=== PATIENT | male | born 1985 | race Two or more races ===

== ENCOUNTER → 2020-03-13 09:08 | Outpatient (BNVA) | payer OTHER, SELFPAY | PROVIDERS: Visit Provider Physician Assistant | DX: S05.01XA Injury of conjunctiva and corneal abrasion without foreign body, right eye, initial encounter (principal); X58.XXXA Exposure to other specified factors, initial encounter | CPT/HCPCS: 99214 ==

== ENCOUNTER → 2020-03-16 09:23 | Outpatient (BNVA) | payer OTHER, SELFPAY | PROVIDERS: Visit Provider Internal Medicine | DX: S05.91XA Unspecified injury of right eye and orbit, initial encounter (principal) | CPT/HCPCS: 99213 ==

== ENCOUNTER → 2021-12-13 13:16 | Outpatient (BNVA) | payer OTHER, SELFPAY | PROVIDERS: Visit Provider Internal Medicine | DX: S30.0XXA Contusion of lower back and pelvis, initial encounter (principal); W18.09XA Striking against other object with subsequent fall, initial encounter | CPT/HCPCS: 99203 ==

== ENCOUNTER → 2021-12-17 13:29 | Outpatient (BNVA) | payer OTHER, SELFPAY | PROVIDERS: Visit Provider Physician Assistant Medical | DX: S30.0XXD Contusion of lower back and pelvis, subsequent encounter (principal); W18.09XD Striking against other object with subsequent fall, subsequent encounter | CPT/HCPCS: 99213 ==

== ENCOUNTER → 2021-12-27 13:21 | Outpatient (BNVA) | payer OTHER, SELFPAY | PROVIDERS: Visit Provider Physician Assistant Medical | DX: S30.0XXD Contusion of lower back and pelvis, subsequent encounter (principal); W18.09XD Striking against other object with subsequent fall, subsequent encounter | CPT/HCPCS: 99213 ==

== ENCOUNTER → 2022-02-14 13:05 | Outpatient (BNVA) | payer OTHER, SELFPAY | PROVIDERS: Visit Provider Physician Assistant Medical | DX: S30.0XXD Contusion of lower back and pelvis, subsequent encounter (principal); W18.09XD Striking against other object with subsequent fall, subsequent encounter | CPT/HCPCS: 99213 ==

== ENCOUNTER → 2022-08-05 10:02 | Outpatient (BNVA) | payer OTHER, SELFPAY | PROVIDERS: Visit Provider Internal Medicine | DX: S67.21XA Crushing injury of right hand, initial encounter (principal); W23.1XXA Caught, crushed, jammed, or pinched between stationary objects, initial encounter | CPT/HCPCS: 73110; 73130; 99203 ==

== ENCOUNTER → 2022-08-12 11:47 | Outpatient (BNVA) | payer OTHER, SELFPAY | PROVIDERS: Visit Provider Physician Assistant Medical | DX: S67.21XA Crushing injury of right hand, initial encounter (principal); W23.1XXA Caught, crushed, jammed, or pinched between stationary objects, initial encounter | CPT/HCPCS: 99213 ==

== ENCOUNTER 2022-08-21 10:17 | Outpatient (REF) | payer OTHER, SELFPAY ==
--- NOTE | ~2022-08-21 | XR_ITS ---
EXAMINATION: XR HAND, RIGHT CLINICAL INFORMATION: Pain COMPARISON: Previous x-ray July 2022 TECHNIQUE: PA, lateral, and oblique views of the right hand. FINDINGS: No acute fracture. Question old healed fifth metacarpal fracture. Alignment is anatomic. Joint spaces are maintained. No erosions or soft tissue calcifications. XR/XR hand RT min 3V IMPRESSION: No acute fracture.
== END 2022-08-21 10:18 | disposition home or self-care (01) ==
LOC: HO.HOSX 10:17
PROVIDERS: Visit Provider Orthopaedic Surgery
DX: S67.01XA Crushing injury of right thumb, initial encounter (principal)
CPT/HCPCS: 73130; 99202

== ENCOUNTER → 2022-08-26 09:01 | Outpatient (BNVA) | payer OTHER, SELFPAY | PROVIDERS: Visit Provider Physician Assistant Medical | DX: S67.21XD Crushing injury of right hand, subsequent encounter (principal); W23.1XXD Caught, crushed, jammed, or pinched between stationary objects, subsequent encounter | CPT/HCPCS: 99213 ==

== ENCOUNTER 2022-09-04 07:18 | Outpatient (REF) | payer OTHER, SELFPAY ==
--- NOTE | ~2022-09-04 | MR_ITS ---
EXAMINATION: MR HAND WITHOUT CONTRAST, RIGHT CLINICAL INFORMATION: Right hand pain and swelling following a crush injury. Decreased strength especially with extension at the thumb. COMPARISON: Right hand and wrist radiographs dated 08/05/2022 and right hand radiographs dated 08/21/2022. TECHNIQUE: Multisequence MR imaging of the right hand was obtained without contrast on a high-field strength scanner. FINDINGS: BONE: Marrow edema within the volar aspect of the 1st metacarpal head as well as mild adjacent marrow edema, which could represent osseous contusions. No associated fracture line. MUSCLES/TENDONS: Trace fluid within the flexor pollicis longus tendon sheath, consistent mild tenosynovitis. Mild edema within the abductor pollicis brevis and opponens pollicis myotendinous junctions, consistent with mild strains/partial tears. LIGAMENTS: There is a full-thickness tear through the distal aspect of the 1st carpometacarpal ulnar collateral ligament measuring up to 0.2 cm in craniocaudal dimension. No significant ligament retraction or interposition of the adductor aponeurosis. Full-thickness tear through the proximal aspect of the 1st metacarpophalangeal radial collateral ligament measuring up to 0.4 cm in length. Prominent edema surrounding the entirety of the joint capsule, consistent with acute strain/partial tear. SOFT TISSUES: Small 1st metacarpophalangeal joint effusion. Surrounding subcutaneous edema. MR/MR hand RT wo con IMPRESSION: 1. Full-thickness tear through the distal aspect of the 1st metacarpophalangeal ulnar collateral ligament measuring up to 0.2 cm in craniocaudal dimension. No significant ligament retraction or interposition of the adductor aponeurosis. 2. Full-thickness tear through the proximal aspect of the 1st metacarpophalangeal radial collateral ligament measuring up to 0.4 cm in length. Prominent edema surrounding the entirety of the joint capsule, consistent with acute strain/partial tear. Small 1st metacarpophalangeal joint effusion. 3. Mild strains/partial tears of the abductor pollicis brevis and opponens pollicis myotendinous junctions. Mild flexor pollicis longus tenosynovitis. 4. Marrow edema within the volar aspect of the 1st metacarpal head, which could represent osseous contusions. No associated fracture line.
== END 2022-09-04 07:19 | disposition home or self-care (01) ==
LOC: HO.MRI 07:18
PROVIDERS: Visit Provider Internal Medicine
DX: S67.01XD Crushing injury of right thumb, subsequent encounter (principal)
CPT/HCPCS: 73218; 99212

== ENCOUNTER → 2022-09-09 15:59 | Outpatient (BNVA) | payer OTHER, SELFPAY | PROVIDERS: Visit Provider Physician Assistant Medical | DX: S67.21XD Crushing injury of right hand, subsequent encounter (principal); S53.31XD Traumatic rupture of right ulnar collateral ligament, subsequent encounter; S53.21XD Traumatic rupture of right radial collateral ligament, subsequent encounter; W23.1XXD Caught, crushed, jammed, or pinched between stationary objects, subsequent encounter | CPT/HCPCS: 99213 ==